=== PATIENT | male | born 1955 | race Caucasian/White ===

== ENCOUNTER 2017-03-18 15:39 | Emergency (ER) | payer OTHER ==
--- NOTE | 2017-03-18 15:48 | PDOC ---
History of Present Illness - General History Source: Patient, Old Records Exam Limitations: No Limitations <Lynn Encarnacion - Last Filed: 03/18/17 16:02> - History of Present Illness Initial Comments: 03/18/17 16:06 Patient is a 62 year old male with significant medical hx of anxiety and depression who is presenting to the ED with lower back pain from today. Patient states that today he was sitting on his couch and felt a muscle pull when he stood up. He complains of lower back pain that is non-radiating and characterized as "sharp" and "piercing". During the moment he stood up, the patient felt nauseous and sweaty, but it has since resolved. Patient states that his pain hurts at all times, especially while he is sitting, and worsens he puts pressure on his left leg. The patient voices concern that hes not going to be able to go to work tonight; the patient works as a district loss prevention manager. Denies any heavy lifting, exercise, exertional activity, nausea, vomiting, diarrhea, hematuria, or urinary complaints. <Darcie Menendez - Last Filed: 03/18/17 16:08> - General Chief Complaint: Back Pain Stated Complaint: LOW BACK PAIN Time Seen by Provider: 03/18/17 15:44 Past History - Past Medical History Psychiatric Problems: Yes - Psycho/Social/Smoking Cessation Hx Suicidal Ideation: No Smoking History: Never smoked Hx Alcohol Use: No Substance Use Type: Marijuana <Lynn Encarnacion - Last Filed: 03/18/17 16:02> <Darcie Menendez - Last Filed: 03/18/17 16:08> - Past Medical History Allergies/Adverse Reactions: Allergies Allergy/AdvReac Type Severity Reaction Status Date / Time No Known Allergies Allergy Verified 03/18/17 15:41 Home Medications: Ambulatory Orders Trazodone HCl [Desyrel -] 50 mg PO HS 09/11/13 Duloxetine HCl [Cymbalta -] 80 mg PO DAILY 03/18/17 Review of Systems - Review of Systems Comments:: 03/18/17 16:07 GENERAL/CONSTITUTIONAL: No fever or chills. No weakness. HEAD, EYES, EARS, NOSE AND THROAT: No change in vision. No ear pain or discharge. No sore throat. CARDIOVASCULAR: No chest pain or shortness of breath. RESPIRATORY: No cough, wheezing, or hemoptysis. GASTROINTESTINAL: No nausea, vomiting, diarrhea or constipation. GENITOURINARY: No dysuria, frequency, or change in urination. MUSCULOSKELETAL: Lower back pain. No joint or muscle swelling or pain. No neck pain. ENDOCRINE: No increased thirst. No abnormal weight change. SKIN: No rash NEUROLOGIC: No headache, vertigo, loss of consciousness, or change in strength/ sensation. <Darcie Menendez - Last Filed: 03/18/17 16:08> *Physical Exam - Vital Signs Last Vital Signs Temp Pulse Resp BP Pulse Ox 0/0 03/18/17 15:40 - Physical Exam Comments: 03/18/17 16:08 GENERAL: Awake, alert, and fully oriented, in no acute distress HEAD: No signs of trauma EYES: PERRLA, EOMI, sclera anicteric, conjunctiva clear ENT: Auricles normal inspection, hearing grossly normal, nares patent, oropharynx clear without exudates. Moist mucosa NECK: Normal ROM, supple, no lymphadenopathy, JVD, or masses LUNGS: Breath sounds equal, clear to auscultation bilaterally. No wheezes, and no crackles HEART: Regular rate and rhythm, normal S1 and S2, no murmurs, rubs or gallops ABDOMEN: Soft, nontender, normoactive bowel sounds. No guarding, no rebound. No masses EXTREMITIES: Normal range of motion, no edema. No clubbing or cyanosis. No cords, erythema, or tenderness NEUROLOGICAL: Cranial nerves II through XII grossly intact. Normal speech, normal gait SKIN: Warm, Dry, normal turgor, no rashes or lesions noted. HEMATOLOGIC/LYMPHATIC: No anemia, easy bleeding, or history of blood clots. ALLERGIC/IMMUNOLOGIC: No hives or skin allergy. <Darcie Menendez - Last Filed: 03/18/17 16:08> Medical Decision Making - Medical Decision Making 03/18/17 16:02 62-year-old male with history of psychiatric illness presents to the emergency department with atraumatic lower back pain since this morning; neurologic exam is nonfocal. Differential diagnosis includes but is not limited to: Sciatica, muscle spasm, nerve impingement. Plan: 1. Without acute medical mechanism note imaging studies are indicated 2. Pain management 3. Follow-up with primary care physician 4. Return to the emergency department if symptoms persist, worsen, or new symptoms arise. <Lynn Encarnacion - Last Filed: 03/18/17 16:02> *DC/Admit/Observation/Transfer - Discharge Dispostion Admit: No - Attestations Physician Attestion: 03/18/17 16:05 I, Dr. Lynn Encarnacion, attest that the scribes documentation that appears above has been prepared under my direction and personally reviewed by me in its entirety. I confirmed that the note above accurately reflects all work, treatment, procedures, and medical decision-making performed by me. <Lynn Encarnacion - Last Filed: 03/18/17 16:02> - Attestations Scribe Attestion: 03/18/17 16:08 Documentation prepared by Darcie Menendez, acting as director global medical affairs for Lynn Encarnacion MD. <Darcie Menendez - Last Filed: 03/18/17 16:08> Diagnosis at time of Disposition: Lower back pain - Discharge Dispostion Disposition: ELOPED Condition at time of disposition: Stable
[2017-03-18 15:49] VITALS: BP 0/0; BMI 25.9
[2017-03-18] MEDS ORDERED: KETOROLAC TROMETHAMINE 60 MG/2 ML VIAL IM ONE (15:57)
== END 2017-03-18 16:10 | disposition left against medical advice (07) ==
LOC: FER 15:39
PROC: 3E0233Z Introduction of Anti-inflammatory into Muscle, Percutaneous Approach (ICD-10-PCS; principal; 2017-03-18)
DX: M54.5 Low back pain (principal); F41.8 Other specified anxiety disorders
CPT/HCPCS: 99282-25

== ENCOUNTER 2019-12-04 16:10 | Emergency (ER) | payer OTHER ==
[2019-12-04 16:35] VITALS: BP 115/83; PULSE 75; TEMP 97.8; BMI 25.8
--- NOTE | 2019-12-04 18:03 | PDOC ---
Documentation entered by Phillip Ross SCRIBE, acting as scribe for Shayy Knapp DO. Shayy Knapp DO: This documentation has been prepared by the Vandana rose Nirvannie, SCRIBE, under my direction and personally reviewed by me in its entirety. I confirm that the documentation accurately reflects all work, treatment, procedures, and medical decision making performed by me. History of Present Illness - General Chief Complaint: Constipation Stated Complaint: CONSTIPATION History Source: Patient Exam Limitations: No Limitations - History of Present Illness Initial Comments: 12/04/19 17:01 The patient is a 64 year old male, with a significant past medical history of anxiety and depression, who presents to the emergency department with 1 week of constipation, abdominal pain, nausea, and back pain. Patient notes to have tried taking Dulcolax (3 doses) and Metamucil for his symptoms, with only minimal relief (passes only small amounts of liquid). Patient notes he has been able to pass gas without difficulty. He denies any hematemesis, hematochezia, or melena. He denies any recent fevers , chills, headache or dizziness. He denies any recent chest pain or shortness of breath. He denies any recent dysuria or hematuria. He denies any testicular or penile pain. Allergies: NKDA Past surgical history: Skin cancer removal. Primary Care Physician: Dr. Pacheco Past History - Past Medical History Allergies/Adverse Reactions: Allergies Allergy/AdvReac Type Severity Reaction Status Date / Time No Known Allergies Allergy Verified 12/04/19 16:12 Home Medications: Ambulatory Orders traZODone HCL [Desyrel -] 50 mg PO DAILY 09/11/13 Escitalopram Oxalate [Lexapro -] 10 mg PO DAILY 12/04/19 Magnesium Citrate [Citroma -] 150 ml PO BID #1 bottle 12/04/19 Polyethylene Glycol 3350 [Miralax (For Bowel Prep) -] 17 gm PO DAILY #1 bottle 12/04/19 Psychiatric Problems: Yes - Psycho Social/Smoking Cessation Hx Smoking History: Never smoked Number of Cigarettes Smoked Daily: 3 'Breaking Loose' booklet given: 03/18/17 Hx Alcohol Use: No Drug/Substance Use Hx: No Substance Use Type: Marijuana Review of Systems - Review of Systems Able to Perform ROS?: Yes Comments:: 12/04/19 17:02 GENERAL/CONSTITUTIONAL: No fever or chills. No weakness. HEAD, EYES, EARS, NOSE AND THROAT: No change in vision. No ear pain or discharge. No sore throat. GASTROINTESTINAL: +Constipation. Abdominal pain. Nausea. No vomiting or diarrhea. GENITOURINARY: No dysuria, frequency, or change in urination. CARDIOVASCULAR: No chest pain or shortness of breath. RESPIRATORY: No cough, wheezing, or hemoptysis. MUSCULOSKELETAL: +Low back pain. No joint swelling or pain. No neck pain. SKIN: No rash NEUROLOGIC: No headache, vertigo, loss of consciousness, or change in strength/ sensation. ENDOCRINE: No increased thirst. No abnormal weight change. HEMATOLOGIC/LYMPHATIC: No anemia, easy bleeding, or history of blood clots. ALLERGIC/IMMUNOLOGIC: No hives or skin allergy. All Other Systems: Reviewed and Negative *Physical Exam - Vital Signs Last Vital Signs Temp Pulse Resp BP Pulse Ox 97.8 F 75 18 115/83 98 12/04/19 16:10 12/04/19 16:10 12/04/19 16:10 12/04/19 16:10 12/04/19 16:10 - Physical Exam 12/04/19 17:02 Constitutional: Awake, alert, oriented. No acute distress. Head: Normocephalic. Atraumatic Eyes: PERRL. EOMI. Conjunctivae are not pale. ENT: Mucous membranes are moist and intact. Posterior pharynx without exudates or erythema. Uvula midline. Neck: Supple. Full ROM. No lymphadenopathy. Cardiovascular: Regular rate. Regular rhythm. S1, S2 regular. Distal pulses are 2+ and symmetric. Pulmonary/Chest: No evidence of respiratory distress. Clear to auscultation bilaterally No wheezing, rales or rhonchi. Abdominal: Soft and non-distended. There is no tenderness. No rebound, guarding or rigidity. No organomegaly. No palpable masses. Good bowel sounds. Rectal: Vault clear. No hemorrhoids visualized. Normal tone. Back: No c-spine, t-spine, or l-spine midline tenderness. No CVA tenderness. Musculoskeletal: No edema. No cyanosis. No clubbing. Full range of motion in all extremities. No calf tenderness. Radial/pedal pulses are intact and 2+ bilaterally Skin: Skin is warm and dry. No petechiae. No purpura. Neurological: Alert and oriented to person, place, and time. Cranial nerves II -XII are grossly intact. Normal speech. Strength is grossly symmetric. No sensory deficits. Psychiatric: Good eye contact. Normal interaction, affect and behavior. ED Treatment Course - RADIOLOGY Radiology Studies Ordered: Category Date Time Status ABDOMEN FLAT & UPRIGHT [RAD] Stat Radiology 12/04/19 16:45 Completed Medical Decision Making - Medical Decision Making 12/04/19 17:56 a/p: 64yo male with constipation -last bm was yesterday but very small -has taken dulcolax and taking metamucil -pt states he feels like he needs to go, but can't go -rectal: vault empty -no abd distension -xray showed constipatin -will rx mag citrate -pt prefers to take at home and discussed miralax order -pt states he follows with a GI at [facility], states he will call his GI to schedule a follow up -discussed dietary changes and meds in full detail -no n/v -pt stable for dc to home to take oral meds at home Discharge - Discharge Information Problems reviewed: Yes Clinical Impression/Diagnosis: Constipation Condition: Stable Disposition: HOME - Admission No - Additional Discharge Information Prescriptions: Magnesium Citrate [Citroma -] 150 ml PO BID #1 bottle Polyethylene Glycol 3350 [Miralax (For Bowel Prep) -] 17 gm PO DAILY #1 bottle - Follow up/Referral Referrals: Conrado Pacheco [Primary Care Provider] - Manjit Rivers DO [Staff Physician] - - Patient Discharge Instructions Patient Printed Discharge Instructions: DI for Constipation Additional Instructions: Please take the miralax starting on Wednesday. Take 1 capful in 8oz water followed by another glass of water at night. If you develop diarrhea please take the miralax every other day. Please take the magnesium citrate today. Please call your Student Career Development Specialist to schedule a follow up appointment. Please call your PMD to schedule a follow up appointment in the next 2 days. Please return to the ER with any further concerns or complaints. - Post Discharge Activity
== END 2019-12-04 18:05 | disposition home or self-care (01) ==
LOC: FER 16:10
DX: K59.00 Constipation, unspecified (principal); F41.8 Other specified anxiety disorders; Z72.0 Tobacco use
CPT/HCPCS: 74019-TC-FY; 99283-25

== ENCOUNTER 2020-04-18 10:13 | Emergency (ER) | payer OTHER ==
[2020-04-18 10:24] VITALS: BP 133/83; PULSE 67; TEMP 98; BMI 26.6
[2020-04-18] MEDS ORDERED: SODIUM CHLORIDE 1,000 ML IV ONE (10:36)
[2020-04-18] MEDS ORDERED: MECLIZINE HCL 25 MG TABLET (FP) PO ONE (10:36)
[2020-04-18] MEDS ORDERED: METOCLOPRAMIDE HCL INJECTION 10 MG/2 ML VIAL IVPUSH ONE (10:36)
[2020-04-18] MEDS ORDERED: METOCLOPRAMIDE HCL INJECTION 10 MG/2 ML VIAL ONE (10:41)
[2020-04-18] MEDS ORDERED: MECLIZINE HCL 25 MG TABLET (FP) ONE (10:41)
--- NOTE | 2020-04-18 10:49 | PDOC ---
History of Present Illness - General Chief Complaint: Lightheaded Stated Complaint: EPISODES OF VERTIGO Time Seen by Provider: 04/18/20 10:16 History Source: Patient Exam Limitations: No Limitations - History of Present Illness Initial Comments: 04/18/20 10:37 65y M no known pmhx presents with complaint of vertigo. Pt states he has had intermittent episodes of room spinning dizziness since wednesday - they are episodic. lasting approx 15 minutes, and associated with severe nausea/vomiting and feeling off balance. When it resolves, he feels ok, to normal, and usually goes to sleep. he denies any headache recent njury, trauma, neck pain, focal numbness/tingling/wekanses, vision changes/duble vision, speech changes. denies any fever/chills, cp, sob, palpitations, back pain, abd pain, diarrhea, melena/black stool. no ercent illnessess social: smoking cigarettes and occasional marijuana, yolanda etoh abuse family: non contributory Past History - Medical History Allergies/Adverse Reactions: Allergies Allergy/AdvReac Type Severity Reaction Status Date / Time No Known Allergies Allergy Verified 04/18/20 10:16 Home Medications: Ambulatory Orders Meclizine HCl [Antivert -] 25 mg PO TID PRN #15 tablet 04/18/20 Ondansetron [Zofran *Odt*] 4 mg SL TID PRN #21 od.tablet 04/18/20 Cancer: Yes (SKIN) COPD: No Psychiatric Problems: Yes - Psycho-Social/Smoking History Smoking History: Current every day smoker Have you smoked in the past 12 months: Yes Number of Cigarettes Smoked Daily: 20 Information on smoking cessation initiated: Yes 'Breaking Loose' booklet given: 12/04/19 - Substance Abuse Hx (Audit-C & DAST Scrn) How often the patient has a drink containing alcohol: Never Score: In Men: 4 or > Positive; In Women: 3 or > Positive: 0 Screen Result (Pos requires Nsg. Audit-10AR): Negative In the last yr the pt used illegal drug/Rx for NonMed reason: Yes Score: Yes response is considered Positive: 1 Screen Result (Positive result requires Nsg. DAST-10): Positive Review of Systems - Review of Systems Able to Perform ROS?: Yes Comments:: 07/09/20 10:49 Constitutional - no reported Fever, Chills, HEENT: no reported vision changes, sore throat Respiratory: no reported cough, sob, hemoptysis Cardiac: no reported chest pain, palpitations, light headedness, leg swelling Abd/GI: +n/v no reported abd pain, blood per rectum, melena, diarrhea : no reported dysuria, frequency, discharge Musculskelatal - no reported back pain, joint swelling skin - no reported bruising, erythema, rash neurological: +vertigo reported headache numbness, focal weakness, tingling, ataxia, hematologic: no reported easy bruising, easy bleeding *Physical Exam - Vital Signs Last Vital Signs Temp Pulse Resp BP Pulse Ox 98.0 F 67 15 133/83 98 04/18/20 10:15 04/18/20 10:15 04/18/20 10:15 04/18/20 10:15 04/18/20 10:15 - Physical Exam 04/18/20 10:50 GENERAL: The patient is awake, alert, and fully oriented, Nontoxic - in no acute distress. HEAD: Normocephalic, atraumatic. EYES: extraocular movements intact, sclera anicteric, conjunctiva clear. +horizontal nystagmus noted ENT: Normal voice, Moist mucous membranes. NECK: Normal range of motion, supple LUNGS: Breath sounds equal, clear to auscultation bilaterally. No wheezes, no rhonchi, no rales. HEART: Regular rate and rhythm, normal S1 and S2 without murmur, rub or gallop. ABDOMEN: Soft, nontender, No guarding, no rebound. No CVA tenderness EXTREMITIES: Normal range of motion, no edema. PSYCH: Normal mood, normal affect. SKIN: Warm, Dry, normal turgor, NEURO: Mental status: The patient is oriented x3. Cranial nerves: Cranial nerves II through XII are intact Motor: The upper extremities are 5 over 5 in all muscle groups. The lower extremities are 5 over 5 in all muscle groups. Negative pronator drift Sensation: Sensation is intact to light touch throughout. romberg negative Cerebellar: Yyoyke-yefqzf-nlqt is normal in both upper extremities. Kcsc-twjv-mcad is normal in both lower extremities. rapid alternating movements are normal. Reflexes: 2+ and symmetric in the upper and lower extremities. Gait: Normal. Heel and toe walking are normal. Tandem gait is normal. Heart Score/ECG Review - ECG Impressions Comment:: 04/18/20 11:45 Twelve-lead EKG was performed and reviewed by me. There is normal sinus rhythm with a Rate of 48 Left axis deviation The intervals are normal. There is normal R wave progression Nonspecific T wave normality ED Treatment Course - LABORATORY CBC & Chemistry Diagram: 04/18/20 10:55 04/18/20 10:55 - RADIOLOGY Radiology Studies Ordered: Category Date Time Status HEAD CT WITHOUT CONTRAST [CT] Stat CT Scan 04/18/20 10:36 Ordered Medical Decision Making - Medical Decision Making 04/18/20 10:50 ddx includes peripheral vertigo, consider central vertigo, migraine, anemia, metabolic derangement, arrythmia will ck cbc cmp ekg, will ck head ct reglan/fluids/meclizin for symptomatic relief willreasess 04/18/20 13:26 pt feelnig improved ambulatory with normal gait no longer dizzy will dc with meclizine/zofran will have pt fu with pmd and neurology return precautions were discussed I discussed the physical exam findings, ancillary test results and final diagnoses with the patient. I answered all of the patient's questions. The patient was satisfied with the care received and felt comfortable with the discharge plan and treatment plan. The patient will call their primary care physician within 24 hours to arrange follow-up and will return to the Emergency Department with any new, persistent or worsening symptoms. Discharge - Discharge Information Problems reviewed: Yes Clinical Impression/Diagnosis: Vertigo Condition: Improved Disposition: HOME - Admission No - Follow up/Referral Referrals: Deidre Tavarez [Primary Care Provider] - Yasir Nielsen MD [Staff Physician] - - Patient Discharge Instructions Patient Printed Discharge Instructions: DI for Vertigo Additional Instructions: Return to the emergency department immediately with ANY new, persistent or worsening symptoms Including any headache, persistent vertigo, change in his vision, change in his speech, any numbness or tingling or weakness, neck pain or any other concerns. Take the meclizine for the next 2 days as recommended for your vertigo, take your Zofran as needed for your nausea You MUST call and follow up with your doctor or neurologist in 3-4 days for further evaluation of your symptoms. Results were discussed with you. Please make sure your doctor reviews the results of your emergency evaluation. Your Emergency Department visit is not complete without a follow up with your doctor. Print Language: PUERTO RICAN - Post Discharge Activity
[2020-04-18 11:35] LABS: ALBUMIN 4.1 g/dl (3.4-5.0); BILIRUBIN,TOTAL 0.7 mg/dl (0.2-1); CALCIUM 9.3 mg/dl (8.5-10); CREATININE 0.7 mg/dl (0.55-1.3); POTASSIUM 3.8 mmol/L (3.5-5.1); TOT PROT 6.5 g/dl (6.4-8.2)
[2020-04-18 11:37] LABS: BASO % 0.3 % (0-2.0); EOS % 1.2 % (0-4.5); HEMATOCRIT 42.5 % (35.4-49); HEMOGLOBIN 14.8 GM/dl (11.7-16.9); LYMPH % 20.1 % (8-40); MCH 32.1 pg (25.7-33.7); MCHC 34.8 g/dl (32.0-35.9); MEAN CELL VOLUME 92.5 fl (80-96); MEAN PLT VOLUME 8.3 fl (7.5-11.1); MONO % 5.7 % (3.8-10.2); NEUT % 72.7 % (42.8-82.8); PLATELET COUNT 261 K/MM3 (134-434); RBC 4.59 M/mm3 (4.00-5.60); RDW 13.3 % (11.9-15.9); WHITE BLOOD COUNT 8.5 K/mm3 (4.0-10.8)
--- NOTE | 2020-04-18 11:53 | EKG ---
Test Reason : Blood Pressure : / mmHG Vent. Rate : 058 BPM Atrial Rate : 058 BPM P-R Int : 154 ms QRS Dur : 084 ms QT Int : 408 ms P-R-T Axes : 024 -42 052 degrees QTc Int : 400 ms SINUS BRADYCARDIA LEFT AXIS DEVIATION NONSPECIFIC ST AND T WAVE ABNORMALITY ABNORMAL ECG NO PREVIOUS ECGS AVAILABLE Confirmed by URIAH MCLEAN MD ([id number]) on 04/18/2020 11:53:00 AM Referred By: LEONEL HUSAIN Confirmed By:URIAH MCLEAN MD
== END 2020-04-18 13:36 | disposition home or self-care (01) ==
LOC: FER 10:13
PROC: 3E033GC Introduction of Other Therapeutic Substance into Peripheral Vein, Percutaneous Approach (ICD-10-PCS; principal; 2020-04-18)
PROC: 3E0337Z Introduction of Electrolytic and Water Balance Substance into Peripheral Vein, Percutaneous Approach (ICD-10-PCS; principal; 2020-04-18)
DX: R42 Dizziness and giddiness (principal)
CPT/HCPCS: 36415; 70450-TC; 80053; 82550; 84484; 85025; 93005; 99285-25; U0003

== ENCOUNTER 2022-08-12 07:51 | Day surgery (SDC) | payer OTHER ==
[2022-08-07 12:20] VITALS: BMI 26.9
[2022-08-12] MEDS: TROPICAMIDE 1% OPHTH SOLN 15 ML BOTTLE ONE ×3 (08:15→08:25)
[2022-08-12] MEDS: CIPROFLOXACIN 0.3% EYE DROPS 5 ML BOTTLE ONE ×3 (08:15→08:25)
[2022-08-12] MEDS: PHENYLEPHRINE 2.5% OPHTH SOLN 15 ML BOTTLE ONE ×3 (08:15→08:25)
[2022-08-12] MEDS: CYCLOPENTOLATE 2% OPHTH SOLN 2 ML BOTTLE ONE ×3 (08:15→08:25)
[2022-08-12 08:20] VITALS: TEMP 98
[2022-08-12] MEDS ORDERED: MIDAZOLAM HCL 2 MG/2 ML SINGLE DOSE VIAL ONE (09:06)
[2022-08-12] MEDS ORDERED: BSS (NA/CA/MG/K) BALANCED SALT SOLUTION OPHTH SOLN 15 ML BOTTLE ONE (09:21)
[2022-08-12] MEDS ORDERED: LIDOCAINE 1% P/F 10 MG/ML VIAL ONE (09:21)
[2022-08-12] MEDS ORDERED: CARBACHOL 0.01% INTRA-OCULAR 1.5 ML VIAL ONE (09:22)
[2022-08-12] MEDS ORDERED: NEO/POLYMYX B SULF/DEXAMETH OPHTHALMIC 5ML BOTTLE ONE (09:22)
[2022-08-12 10:39] VITALS: BP 121/68; PULSE 65; RESP 18
== END 2022-08-12 10:43 | disposition home or self-care (01) ==
LOC: FASU 07:51
PROVIDERS: ATTEND Ophthalmology
PROC: 08RJ3JZ Replacement of Right Lens with Synthetic Substitute, Percutaneous Approach (ICD-10-PCS; principal; 2022-08-12 09:37)
DX: H26.8 Other specified cataract (principal)
CPT/HCPCS: 66984; V2632

== ENCOUNTER 2023-03-10 07:35 | Day surgery (SDC) | payer OTHER ==
[2023-03-09 13:28] VITALS: BMI 26.9
[2023-03-10 08:05] VITALS: RESP 16
[2023-03-10] MEDS: CIPROFLOXACIN 0.3% EYE DROPS 5 ML BOTTLE ONE ×3 (08:05→08:15)
[2023-03-10] MEDS: CYCLOPENTOLATE 2% OPHTH SOLN 2 ML BOTTLE ONE ×3 (08:05→08:15)
[2023-03-10] MEDS: TROPICAMIDE 1% OPHTH SOLN 15 ML BOTTLE ONE ×3 (08:05→08:15)
[2023-03-10] MEDS: PHENYLEPHRINE 2.5% OPTHALMIC DROP 2ML BOTTLE ONE ×3 (08:05→08:15)
[2023-03-10] MEDS ORDERED: CARBACHOL 0.01% INTRA-OCULAR 1.5 ML VIAL ONE (08:22)
[2023-03-10] MEDS ORDERED: TETRACAINE 0.5% OPHTH SOLN 2 ML BOTTLE ONE (08:22)
[2023-03-10] MEDS ORDERED: EPINEPHrine/PF 1 MG/1 ML (1:1,000) AMPULE ONE (08:22)
[2023-03-10] MEDS ORDERED: NEO/POLYMYX B SULF/DEXAMETH OPHTHALMIC 5ML BOTTLE ONE (08:22)
[2023-03-10] MEDS ORDERED: LIDOCAINE HCL/PF 1% SDV 5ML VIAL ONE (08:22)
[2023-03-10] MEDS ORDERED: BSS (NA/CA/MG/K) BALANCED SALT SOLUTION OPHTH SOLN 15 ML BOTTLE ONE (08:22)
[2023-03-10] MEDS ORDERED: MIDAZOLAM HCL 2 MG/2 ML SINGLE DOSE VIAL ONE (08:32)
[2023-03-10] MEDS ORDERED: KETOROLAC TROMETHAMINE 30 MG/1 ML VIAL ONE (08:44)
[2023-03-10 09:26] VITALS: TEMP 97.3
[2023-03-10 09:40] VITALS: BP 127/78; PULSE 60
== END 2023-03-10 09:52 | disposition home or self-care (01) ==
LOC: FASU 07:35
PROVIDERS: ATTEND Ophthalmology
PROC: 08RK3JZ Replacement of Left Lens with Synthetic Substitute, Percutaneous Approach (ICD-10-PCS; principal; 2023-03-10 08:40)
DX: H26.8 Other specified cataract (principal)
CPT/HCPCS: 66984; V2632